=== PATIENT | male | born 1990 | race Caucasian/White ===

== ENCOUNTER 2017-02-20 08:23 | Emergency (ER) | payer BC ==
[2017-02-20 08:38] VITALS: BP 154/88
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
== END 2017-02-20 08:52 | disposition home or self-care (01) ==
LOC: ER 08:23
DX: H10.9 Unspecified conjunctivitis (principal)

== ENCOUNTER 2017-03-19 15:11 | Emergency (ER) | payer BC, OTHER ==
[2017-03-19 15:32] VITALS: BP 150/81
[2017-03-19] MEDS ORDERED: DIPHTH,PERTUSS(ACELL),TET VAC 0.5 ML VIAL IM ONE ×2 (17:03→17:22)
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
== END 2017-03-19 17:31 | disposition home or self-care (01) ==
LOC: ER 15:11
PROC: 0HQ1XZZ Repair Face Skin, External Approach (ICD-10-PCS; principal; 2017-03-19)
DX: S01.81XA Laceration without foreign body of other part of head, initial encounter (principal); S09.90XA Unspecified injury of head, initial encounter; F17.220 Nicotine dependence, chewing tobacco, uncomplicated; W22.8XXA Striking against or struck by other objects, initial encounter; Y93.89 Activity, other specified; Y92.89 Other specified places as the place of occurrence of the external cause; Y99.0 Civilian activity done for income or pay; Z23 Encounter for immunization

== ENCOUNTER 2017-03-20 23:27 | Emergency (ER) | payer BC ==
[2017-03-21 00:10] VITALS: BP 132/82
--- NOTE | 2017-03-21 00:26 | ERNOTE ---
Head Injury HPI - Narrative Date of Service: 03/21/17 - General Injury to: head Time Seen by Provider: 03/21/17 00:21 - Immun/Allergies/Home Medications Immunization: IMMUNIZATION HX Immunizations Up to Date Yes History of Influenza Vaccine No Hx Pneumococcal Vaccination No Allergies/Adverse Reactions: Allergies Allergy/AdvReac Type Severity Reaction Status Date / Time acetaminophen [From Vicodin] Allergy Verified 03/19/17 15:32 hydrocodone Allergy Verified 03/19/17 15:32 Home Medications: HOME MEDICATIONS Lisinopril/Hydrochlorothiazide [Lisinopril-Hctz 20-25 mg Tab] 1 each PO [Last Taken Unknown] - History of Present Illness Narrative: This is a 26-year-old male who was seen yesterday in the emergency Department for a wound to his right frontal scalp. He had the wound cleaned and glued. The patient says that he was given instructions to come back to the emergency department if it started draining any fluid or if the glue came off. The patient says that throughout the day today and had a tiny bit of drainage, but this evening had several drops of blood mixed with clear fluid. His had no pain no fever. He just wanted to make sure that everything was okay. Review of Systems - Review of Systems Constitutional: Present: no symptoms reported EYE: Present: no symptoms reported ENT: Present: no symptoms reported Respiratory: Present: no symptoms reported Cardiology: Present: no symptoms reported Gastrointestinal/Abdominal: Present: no symptoms reported Genitourinary: Present: no symptoms reported Musculoskeletal: Present: no symptoms reported Skin: Present: See HPI Neurological: Present: no symptoms reported Endocrine: Present: no symptoms reported Hematologic/Lymphatic: Present: no symptoms reported Psych: Present: no symptoms reported All Other Systems: All systems neg except as marked - Patient's Past Medical History Patient History - Medical: No pertinent hx Patient History - Cardiac/Respiratory: Hypertension Patient History - Cancer: No Hx of Cancer Patient History - Surgical Procedures: Orthopedic Patient History - Other: None - Social History Living Situations: significant other Abuse History: No History of abuse Psych History: No pertinent hx Smoking Status: Never smoker Have you smoked in the past 12 months: No Do you dip or chew tobacco: Yes Alcohol Use: occasionally Drug Use: none - Immunizations Immunizations Up to Date: Yes Hx Pneumococcal Vaccination: No History of Influenza Vaccine: No Physical Exam - Physical Exam General Appearance: Present: wd/wn, alert, no apparent distress Head Exam: Present: other - scalp laceration to the right frontal which is scabbed over. The glue is intact except midway down on the medial aspect, there is a tiny area where clear fluid mixed with blood is draining. Serosanguineous Eye Exam: Normal inspection: bilateral, PERRL: bilateral Ears, Nose, Throat: Present: normal ENT inspection Respiratory: Present: no respiratory distress Back Exam: Present: normal inspection Extremity Exam: Present: normal inspection, non-tender Neurological Exam: Present: alert, oriented, normal mood/affect Skin Exam: Present: normal color, warm/dry, other - the laceration is well- healing Lymphatic Exam: Present: no adenopathy ED Progress - Vital Signs Patient's Vital Signs:: I have reviewed the patient's vital signs. Vital Signs: Vital Signs 03/21/17 00:05 Temperature 37.0 C Pulse Rate 64 Respiratory 14 Rate Blood Pressure 132/82 O2 Sat by Pulse 100 Oximetry - Progress/Reassessment Chief Complaint: Head Injury Departure Clinical Impression: Wound drainage - Departure Disposition: Home self-care Condition: Stable Instructions: Wound Dehiscence Additional Instructions: As we discussed, the edges of your wound have not really pulled apart. Your body creates some clear colored fluid which mixes with blood and this actually helps protect the wound. Unfortunately this fluid has to find a way to drain. Inevitably when glued, a small edge of the glue will come up allowing this fluid to escape. There is no sign of infection at the moment. The wound is healing well. I want him to keep an eye on it. If you develop pus draining out, fever, redness streaking on your forehead, or significantly increased pain he should come back to the ER for reevaluation Her family doctor and set up a follow-up appointment
== END 2017-03-21 00:30 | disposition home or self-care (01) ==
LOC: ER 23:27
DX: S01.01XD Laceration without foreign body of scalp, subsequent encounter (principal); X58.XXXD Exposure to other specified factors, subsequent encounter